=== PATIENT | male | born 1945 | race Caucasian/White ===

== ENCOUNTER 2020-11-01 09:05 | Emergency (ER) | payer OTHER ==
--- NOTE | 2020-11-01 09:26 | EDM.PDOC ---
ED HPI GENERAL MEDICAL PROBLEM - General Chief Complaint: Neuro Symptoms/Deficits Stated Complaint: STROKE SYMPTOMS Time Seen by Provider: 11/01/20 09:10 Source of Information: Reports: Patient, Family History Limitations: Reports: Physical Impairment - History of Present Illness INITIAL COMMENTS - FREE TEXT/NARRATIVE: 75-year-old male arrives with significant right-sided facial droop and aphasia, weakness of the right arm with lack of coordination. Sudden onset 20 minutes ago. He has a history of intermittent atrial fibrillation, is not on anticoagulants. Recently seen for prostate issues and started on Bactrim. He has no contraindications to thrombolytics. Denies any pain, no loss of consciousness. Onset: Sudden Duration: Minutes: (Symptoms started 20 to 30 minutes ago) denies Pain Score (Numeric/FACES): 0 - Related Data Allergies Allergy/AdvReac Type Severity Reaction Status Date / Time Penicillins Allergy Rash Verified 11/01/20 09:13 Past Medical History HEENT History: Reports: Impaired Vision Cardiovascular History: Reports: Afib Genitourinary History: Reports: Other (See Below) Other Genitourinary History: enlarged prostate - Infectious Disease History Infectious Disease History: Reports: Chicken Pox - Past Surgical History Cardiovascular Surgical History: Reports: Valve Replacement Other Cardiovascular Surgeries/Procedures: open heart surgery with valve replacement ED ROS GENERAL - Review of Systems Review Of Systems: See Below (Limited review of systems obtained from the family, he cannot answer questions) Constitutional: Reports: No Symptoms HEENT: Denies: Vision Change Cardiovascular: Reports: No Symptoms GI/Abdominal: Reports: No Symptoms. Denies: Vomiting : Reports: Other (Being treated for prostatitis) Skin: Reports: No Symptoms Neurological: Denies: Headache ED EXAM, NEURO - Physical Exam Exam: See Below Exam Limited By: No Limitations General Appearance: Alert, No Apparent Distress Eye Exam: Bilateral Eye: EOMI Head Exam: Atraumatic Neck: Supple, Non-Tender. No: Lymphadenopathy (R), Lymphadenopathy (L) Respiratory/Chest: No Respiratory Distress, Lungs Clear Cardiovascular: Regular Rate, Rhythm. No: Extra Beats GI/Abdominal: Non-Tender Neurological: Alert, Other (Significant right facial drooping, some weakness and lack of coordination to the right arm. Good strength in the lower extremities.) Extremities: No: Pedal Edema Psychiatric: Anxious Skin Exam: Warm Course - Vital Signs Last Recorded V/S: Last Vital Signs Temp 98.2 F 11/01/20 09:38 Pulse 104 H 11/01/20 09:38 Resp 16 11/01/20 09:38 BP 159/81 H 11/01/20 09:38 Pulse Ox 93 L 11/01/20 09:38 - Orders/Labs/Meds Labs: Laboratory Tests 11/01/20 11/01/20 11/01/20 Range/Units 09:20 09:20 09:20 WBC 7.0 (4.5-11.0) K/uL RBC 5.37 (4.30-5.90) M/uL Hgb 14.8 (12.0-15.0) g/dL Hct 47.6 (40.0-54.0) % MCV 89 (80-98) fL MCH 28 (27-31) pg MCHC 31 L (32-36) % Plt Count 283 (150-400) K/uL Neut % (Auto) 58 (36-66) % Lymph % (Auto) 29 (24-44) % Craig % (Auto) 11 H (2-6) % Eos % (Auto) 2 (2-4) % Baso % (Auto) 1 (0-1) % PT 10.4 (9.5-12.0) sec INR 0.95 (0.80-1.20) Sodium 139 L (140-148) mmol/L Potassium 3.7 (3.6-5.2) mmol/L Chloride 101 (100-108) mmol/L Carbon Dioxide 24 (21-32) mmol/L Anion Gap 17.7 H (5.0-14.0) mmol/L BUN 15 (7-18) mg/dL Creatinine 1.6 H (0.8-1.3) mg/dL Est Cr Clr Drug Dosing 41.82 mL/min Estimated GFR (MDRD) 42 L (>60) Glucose 137 H (74-106) mg/dL Calcium 9.3 (8.5-10.1) mg/dL Total Bilirubin 0.3 (0.2-1.0) mg/dL AST 23 (15-37) U/L ALT 34 (12-78) U/L Alkaline Phosphatase 82 (46-116) U/L Total Protein 7.3 (6.4-8.2) g/dL Albumin 3.9 (3.4-5.0) g/dL Globulin 3.4 (2.3-3.5) g/dL Albumin/Globulin Ratio 1.1 L (1.2-2.2) Meds: Medications Discontinued Medications Generic Name Dose Route Start Last Admin Trade Name Buckq PRN Reason Stop Dose Admin Alteplase, Recombinant 7.6 mg 11/01/20 09:45 11/01/20 09:34 Alteplase 100 Mg Vial IVPUSH 11/01/20 09:46 7.6 mg ONETIME ONE Administration Alteplase, Recombinant 68.4 mg 68.4 mls @ 68.4 mls/hr 11/01/20 09:45 11/01/20 09:36 / Premix IV 11/01/20 10:44 68.4 mls/hr ONETIME ONE Administration - Re-Assessments/Exams Free Text/Narrative Re-Assessment/Exam: 11/01/20 09:25 IVs were started, blood was drawn, and urgent phone consultation with interventional neurology at [facility] was obtained. Contraindications to TPA were discussed with the patient and his family as it was recommended by Dr. Ren the stroke interventionalist who accepted him. He was prepared for tPA bolus and drip for a 90 kg male. Urgent head CT showed no bleed. 11/01/20 09:32 TPA was given per protocol and patient was transferred to air care for urgent transport to [facility]. Critical care was 30 minutes 11/01/20 09:34 environmental monitoring specialist shows sinus rhythm, mild tachycardia. 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 Dr. Ren accepted transfer at 9:15 AM. Sepsis Event Note (ED) - Focused Exam Vital Signs: Vital Signs Temp Pulse Resp BP Pulse Ox 11/01/20 09:38 98.2 F 104 H 16 159/81 H 93 L 11/01/20 09:28 91 21 H 159/81 H 95 11/01/20 09:22 97.6 F 117 H 18 163/93 H 93 L 11/01/20 09:13 113 H 160/91 H 93 L 11/01/20 09:09 98.2 F 117 H 18 163/93 H 93 L
--- NOTE | 2020-11-01 09:27 | CT ---
Head wo Cont CLINICAL HISTORY: Stroke COMPARISON: None TECHNIQUE: Transverse scans were obtained from the base of the skull through the vertex without IV contrast on a multislice, multidetector CT scanner. Auto dosage reduction and iterative reconstruction techniques employed. FINDINGS: No focal abnormal parenchymal density is identified.. There is no mass effect, hemorrhage, or extraaxial collection. There is some mild the subcortical and periventricular lucency The basal cisterns and sulci over the convexities are mildly prominent. The ventricles are normal for age. IMPRESSION: No acute intracranial process Minimal atrophic change Mild chronic ischemic microvascular changes
[2020-11-01] MEDS ORDERED: ALTEPLASE IV ONE (09:45)
== END 2020-11-01 09:41 | disposition other institution (70) ==
LOC: JP.ED 09:05
DX: I63.9 Cerebral infarction, unspecified (principal); I48.91 Unspecified atrial fibrillation; Z88.0 Allergy status to penicillin
CPT/HCPCS: 36415; 37195; 70450; 80053; 85025; 85610; 99285; J2997; 99291